=== PATIENT | female | born 1935 | race Caucasian/White ===

== ENCOUNTER → 2016-08-06 | Day surgery (SDC) | payer MEDICARE, OTHER ==
[~2016-08-06] VITALS: Ht 172.7 cm; Wt 82.9 kg
[~2016-08-06] MED LIST: ASPI81CH PO; ASPIRIN EC 81 MG TABEC ONE; ASPIRIN EC 81 MG TABEC PO ONE; DO NOT ADM ANY ANTICOAGULANT DRUGS XX PRN; FLEC100T PO; FLEC1TAB9 PO; INSULIN HUMAN REGULAR 1,000 UNITS/10 ML VIAL SQ PRN; LACTATED RINGER'S 1000 ML IV SCH; LEVO.15 PO; LEVO137T2 PO; LISI-519 PO; METOPROLOL TARTRATE 25 MG TAB PO PRN; METOPROLOL TARTRATE 5 MG/5 ML VIAL IV PUSH ONE; METOPROLOL TARTRATE 5 MG/5 ML VIAL ONE; ONDANSETRON HCL 4 MG/2 ML VIAL IV PUSH ONE; ONDANSETRON HCL 4 MG/2 ML VIAL IV PUSH PRN; PRAV20TA PO; PROPOFOL 200 MG/20 ML AMP IV ONE; ROSU1TAB6 PO; SODIUM CHLORID 0.9% 500 ML IV SCH; TIMO0.2517; TRAM50TA PO; TRIA1TAB5 PO; traMADol HCL 50 MG TAB PO PRN
[2016-08-06 07:30] VITALS: BP 159/91; PULSE 80; RESP 16; TEMP 97; O2SAT 96
--- NOTE | 2016-08-06 07:51 | RADRPT ---
EXAM DATE/TIME: 08/06/2016 07:13 [place] COMPARISON: CT ABDOMEN & PELVIS W CONTRAST, July 04, 2016, 11:51. INDICATIONS : Pre-op, lithotripsy. MEDICAL HISTORY : None. SURGICAL HISTORY : Stent, left. ENCOUNTER: Initial ACUITY: 1 day PAIN SCORE: 5/10 LOCATION: Left upper quadrant FINDINGS: 2 supine AP views of the abdomen demonstrate a left ureteral stent in place. Overlying the left lower pole kidney is a density measuring 7 x 4 mm. No other abnormal densities are visualized overlying th e kidneys. There is a 3 mm density adjacent to the distal ureteral stent in the left pelvis. Based on the appearance and location I believe this is a vascular calcification. There is also a phlebolith i n the right pelvis. There is a nonobstructive bowel gas pattern. There are degenerative changes are present in the lumbar spine. Patient is post bilateral hip arthroplasty. CONCLUSION: 1. Left ureteral stent is present. There is a 7 x 4 mm density overlying the left lower pole kidney l ikely representing a renal stone. 2. There is a 3 mm density adjacent to the distal left ureteral stent in the left pelvis is felt to m ost likely be a vascular calcification. There is also a phlebolith in the right pelvis. Santhosh Vazquez MD on August 06, 2016 at 7:41 Board Certified Radiologist. This report was verified electronically.
--- NOTE | 2016-08-06 12:11 | MP ---
cc: JOB KELLY MD DATE OF SURGERY: 08/12/2016 INDICATION FOR PROCEDURE This is the case of a pleasant 80-year-old female with a history of a left renal calculus who presents today to undergo extracorporeal shock wave lithotripsy. PREOPERATIVE DIAGNOSIS Left renal calculus. POSTOPERATIVE DIAGNOSIS Left renal calculus. ATTENDING SURGEON Dr. Kelly ANESTHESIA General. PROCEDURE PERFORMED Extracorporeal shock wave lithotripsy of left renal calculus. COMPLICATIONS None. ESTIMATED BLOOD LOSS None. SPECIMENS None. OPERATIVE PROCEDURE IN DETAIL The patient was brought to the operating room suite and placed supine on the lithotripsy table. She was then placed under general anesthesia. After an appropriate timeout was taken I proceeded with localizing the patient's left renal calculus. The patient next received extracorporeal shock wave lithotripsy utilizing the Connect Piezolith 3000 device. The patient ended up receiving a total of 2500 shocks with a maximum power level setting of 20. At the conclusion of the procedure the stone appeared well-fragmented. The patient tolerated the procedure without complications and was transferred to the PACU in satisfactory condition. Job Kelly MD BPS/BT /10:28 AM /12:02 PM
[2016-08-06 15:03] LABS: CREATINE KINASE 49 U/L (26-192)
[2016-08-06 18:00] VITALS: BP 138/76; PULSE 78; RESP 16; TEMP 97.8; O2SAT 97
--- NOTE | 2016-08-06 18:05 | MB ---
cc: RODRIGO OJEDA DO DATE OF CONSULTATION 08/06/2016 REASON FOR CONSULTATION Chest pain. HISTORY OF PRESENT ILLNESS Shasha Crawford is a pleasant 80-year-old female who presented to [facility] for elective procedure today with Dr. Kelly. She underwent extracorporal shock wave lithotripsy of a left renal calculus. She previously was here for septic shock due to her kidney stone. During that visit she underwent cystoscopy and stent placement for her left ureter. She was brought back for an elective procedure today. She woke up from the procedure and had some mild chest discomfort. She states that it was 1-2/10. She felt that it hurt whenever she pressed on it. It also hurt whenever she moved. It did not radiate anywhere. It seemed to go away about an hour later. She was able to nap while she had it. EKG was done which showed no significant changes from previous. I was asked to see the patient due to her chest pain. She states that she previously would go to the [facility] four to five times a week for a water aerobics during which she exercises at least moderately without chest pain or shortness of breath. She did state that this has been cut down recently because she underwent hip surgery in January and was just getting back into the routine. PAST MEDICAL HISTORY 1. Hypothyroidism. 2. Osteoarthritis. 3. Left renal calculus. 4. Hypercholesterolemia. 5. History of SVT possibly atrial flutter. 6. History of hypertension. PAST SURGICAL HISTORY 1. Status post extracorporal shock wave lithotripsy of a left renal calculus (August 06, 2016). 2. Hysterectomy. 3. Hip replacement. ALLERGIES SULFA. MEDICATIONS 1. Flecainide 50 milligrams q.12h. 2. Timolol 0.25% solution. 3. Crestor 10 milligrams every night. 4. Aspirin 81 mg daily. 5. Tramadol 50 mg every 6 hours as needed. 6. Triamterene / hydrochlorothiazide 75/50 daily as needed for edema. 7. Synthroid 137 mcg daily. SOCIAL HISTORY The patient is . Denies tobacco, alcohol or drugs. FAMILY HISTORY Denies premature coronary artery disease or sudden cardiac within the family. REVIEW OF SYSTEMS 14 systems were reviewed including osteopathic, pertinent positives and negatives above, otherwise negative. PHYSICAL EXAMINATION VITAL SIGNS: Temperature 97.6, heart rate 68, blood pressure 150/90, respiratory rate 16. Pulse oximetry 96% on room air. GENERAL: The patient appears well in no acute distress. Alert, awake and oriented times three. HEENT: Extraocular muscles intact. Mucous membranes moist. NECK: Supple. No JVD at 45 degrees. No carotid bruits heard bilaterally. Carotid upstroke is brisk in nature. HEART: Regular rate and rhythm. Positive first and second heart sounds without any murmurs, rubs, or gallops. Point of maximal impulse is nondisplaced. LUNGS: Clear to auscultation bilaterally. No wheezes, rhonchi or rales. ABDOMEN: Soft and nontender. Nondistended. No organomegaly noted. EXTREMITIES: Show no clubbing, cyanosis or edema. Femoral and distal pulses intact bilaterally. NEUROLOGICAL: No focal deficits. SKIN: Warm and dry, intact. OSTEOPATHIC: Mild lordosis. No kyphosis or paraspinal tender points. LABORATORY DATA Troponin less than 0.02. Total creatinine kinase 49. Electrocardiogram (sinus bradycardia at 59 beats per minute. No significant change from July 05, 2016 at 12:08). IMPRESSION 1. Atypical chest pain postoperatively which most likely appears musculoskeletal in nature. 2. Left renal calculus status post extracorporal shock wave lithotripsy (August 06, 2016). 3. History of hypertension. 4. History of SVT thought to be atrial flutter, currently on flecainide. RECOMMENDATIONS 1. Shasha's chest pain seems very atypical for coronary insufficiency and appears more likely to be musculoskeletal due to her position during surgery. She seemed to feel it when she pressed on her chest more. EKG shows no acute changes. 2. First troponin is negative with a low CK value. Will plan on checking one more in 4 hours after the original one and if this is still within the normal range, she may be discharged home from a cardiovascular standpoint. 3. I did ask her to follow up in my office in the next week or so for consideration of stress testing. 4. This information was relayed to Dr. Kelly and Dr. Mercedes. Thank you for allowing me to see Shasha Crawford. If there are any questions please do not hesitate to call. Rodrigo Ojeda DO VGP/KK /3:39 PM /5:45 PM
--- NOTE | 2016-08-06 22:25 | EKG ---
Date Performed: 08/06/2016 Time Performed: 11:36:05 PTAGE: 80 years EKG: SINUS BRADYCARDIA WITH FIRST DEGREE AV BLOCK ABNORMAL ECG PREVIOUS TRACING : 07/05/2016 12.08 Compared to prior tracing no significant change DOCTOR: Tanvir Horne Interpretating Date/Time 08/06/2016 22:23:31
== END | disposition home or self-care (01) ==
LOC: HSDC 06:53
PROVIDERS: ATTEND Urology
DX: N20.0 Calculus of kidney (principal); R07.89 Other chest pain; E03.9 Hypothyroidism, unspecified; M19.90 Unspecified osteoarthritis, unspecified site; E78.00 Pure hypercholesterolemia, unspecified; I10 Essential (primary) hypertension; Z01.810 Encounter for preprocedural cardiovascular examination; Z01.818 Encounter for other preprocedural examination
CPT/HCPCS: 00872; 50590; 74000; 82550; 84484; 93005; J2405; J3010